=== PATIENT | male | born 1955 | race African-American/Black ===

== ENCOUNTER 2022-12-08 12:48 | Inpatient (IN) | payer MEDICAID ==
[~2022-12-08] VITALS: Ht 185.4 cm; Wt 68.5 kg
[~2022-12-08 12:48] MED LIST: MVI, ADULT NO.1 10 ML, FOLIC ACID 1 MG, THIAMINE HCL 100 MG in SODIUM CHLORIDE 0.9% 1,0... IV ONE
[2022-12-08] MEDS ORDERED: SODIUM CHLORIDE 0.9% 1,000 ML IV ONE (13:30)
[2022-12-08 16:56] LABS: HEMATOCRIT. 42.8 % (42.0-52.0); HEMOGLOBIN. 13.7 g/dL (14.0-18.0); MEAN CORPUSCULAR HEMOGLOBIN 32.5 pg (28.0-32.0); MEAN CORPUSCULAR VOLUME 101.4 fL (80.0-94.0); MEAN PLATELET VOLUME 8.6 fl (7.4-10.4); PLATELET 308 x1000/uL (130-400); RED BLOOD CELL COUNT 4.23 mill/uL (4.7-6.1)
[2022-12-08 17:50] LABS: CLARITY URINE CLOUDY (CLEAR); COLOR URINE DARK YELLOW (YELLOW); KETONES URINE 1+ (NEGATIVE); LEUKOCYTE ESTERASE URINE 1+ (NEGATIVE); NITRITE URINE POSITIVE (NEGATIVE); OCCULT BLOOD URINE TRACE (NEGATIVE); PH URINE 5.5 (4.5-8.0); PROTEIN URINE 1+ (NEGATIVE); SPECIFIC GRAVITY URINE 1.027 (1.005-1.030)
[2022-12-08] MEDS ORDERED: ASPIRIN 325MG EC TABLET PO ONE (18:00)
[2022-12-08] MEDS ORDERED: CEFTRIAXONE 1 G PREMIX 50 ML IV ONE (18:15)
[2022-12-08 18:18] LABS: PLATELET ESTIMATE NORMAL
[2022-12-08 19:57] LABS: CHLORIDE 133 mEq/L (98-107)
[2022-12-08] MEDS ORDERED: CALCIUM GLUCONATE 100MG/ML 10ML VIAL IV SCH (20:15)
[2022-12-08] MEDS ORDERED: POTASSIUM CHLORIDE INJ 40 MEQ in DEXT 5% WATER 250 ML IV SCH (20:30)
[2022-12-08 20:48] LABS: CHLORIDE 107 mEq/L (98-107)
[2022-12-08] MEDS ORDERED: ACETAMINOPHEN 325MG TABLET PO PRN (23:00)
[2022-12-08] MEDS ORDERED: MAGNESIUM/ALUMINUM HYDROXIDE/SIMETHICONE 30ML UDC PO PRN (23:00)
[2022-12-08] MEDS ORDERED: IPRATROPIUM/ALBUTEROL 0.5-3(2.5)MG/3ML NEB HHN PRN (23:00)
[2022-12-08] MEDS ORDERED: NITROGLYCERIN 0.4MG TABLET SL SL PRN (23:00)
[2022-12-08] MEDS ORDERED: DIPHENHYDRAMINE 50MG/ML VIAL IV PRN (23:00)
[2022-12-08] MEDS ORDERED: CLONIDINE 0.1MG TABLET PO PRN (23:00)
[2022-12-08] MEDS ORDERED: ONDANSETRON HCL 4MG/2ML INJ IV PRN (23:00)
[2022-12-09] MEDS ORDERED: PIPERACILLIN/TAZ 3.375G PREMIX 50 ML IV NR
[2022-12-09] MEDS ORDERED: MVI, ADULT NO.1 10 ML, FOLIC ACID 1 MG, THIAMINE HCL 100 MG in SODIUM CHLORIDE 0.9% 1,0... IV ONE ×4
[2022-12-09] MEDS ORDERED: VANCOMYCIN 1,750 MG in DEXT 5% WATER 500 ML IV NR ×2
[2022-12-09 01:17] LABS: VITAMIN B12 SERUM 862 pg/mL (211-911)
[2022-12-09 01:27] VITALS: BP 105/60
[2022-12-09 01:29] VITALS: BP 105/60
[2022-12-09] MEDS ORDERED: IPRATROPIUM BROMIDE (0.02%) 0.5MG/2.5ML NEB HHN PRN (02:00)
[2022-12-09] MEDS ORDERED: ALBUTEROL (0.083%) 2.5MG/3ML NEB HHN PRN (02:00)
[2022-12-09] MEDS ORDERED: PIPERACILLIN/TAZOBACTAM 3.375 G in DEXTROSE 5% WATER 50 ML IV SCH (07:00)
[2022-12-09 07:12] LABS: CREATINE KINASE MB FRACTION 3.3 ng/mL (0.5-3.6)
[2022-12-09 07:26] LABS: CHLORIDE 106 mEq/L (98-107)
[2022-12-09 07:45] LABS: HEMATOCRIT. 34.6 % (42.0-52.0); HEMOGLOBIN. 11.4 g/dL (14.0-18.0); MEAN CORPUSCULAR HEMOGLOBIN 32.7 pg (28.0-32.0); MEAN CORPUSCULAR VOLUME 99.7 fL (80.0-94.0); MEAN PLATELET VOLUME 8.6 fl (7.4-10.4); PLATELET 259 x1000/uL (130-400); RED BLOOD CELL COUNT 3.47 mill/uL (4.7-6.1); RED CELL DISTRIBUTION WIDTH 13.6 % (11.6-14.6)
[2022-12-09 08:00] VITALS: BP 99/66
[2022-12-09 08:12] LABS: HDL CHOLESTEROL 38 mg/dL (40-59); LDL CHOLESTEROL 56 mg/dL (5-100); T4 FREE 1.14 ng/dL (0.76-1.46)
[2022-12-09] MEDS: ENOXAPARIN 40MG/0.4ML SYR SUBCUT SCH (09:28)
[2022-12-09] MEDS: ASPIRIN 81MG EC TABLET PO SCH (09:28)
[2022-12-09] MEDS: PIPERACILLIN/TAZOBACTAM 3.375 G in DEXTROSE 5% WATER 50 ML IV SCH ×2 (10:56→21:30)
[2022-12-09 12:00] VITALS: BP 98/62
[2022-12-09] MEDS ORDERED: VANCOMYCIN 1G PREMIX 200 ML IV SCH (13:00)
[2022-12-09 13:35] LABS: *AMPHETAMINES SCREEN URINE NEGATIVE (NEGATIVE); *BARBITURATES SCREEN URINE NEGATIVE (NEGATIVE); *BENZODIAZEPINES SCREEN URINE NEGATIVE (NEGATIVE); *COCAINE SCREEN URINE NEGATIVE (NEGATIVE); CANNABINOID URINE SCREEN PRESUMTIVE POSITIVE (NEGATIVE); METHADONE URINE SCREEN NEGATIVE (NEGATIVE); OPIATES URINE SCREEN NEGATIVE (NEGATIVE); PHENCYCLIDINE URINE SCREEN PRESUMTIVE POSITIVE (NEGATIVE)
[2022-12-09 14:08] LABS: PLATELET ESTIMATE NORMAL
[2022-12-09 16:00] VITALS: BP 100/57
[2022-12-09 17:22] LABS: CREATINE KINASE 126 IU/L (39-308); CREATINE KINASE MB FRACTION 3.2 ng/mL (0.5-3.6); ETHANOL BLOOD < 10 mg/dL
[2022-12-09] MEDS: VANCOMYCIN 750MG PREMIX 150 ML IV SCH (17:34)
[2022-12-09 20:00] VITALS: BP 91/54
[2022-12-09] MEDS: ACETAMINOPHEN 325MG TABLET PO PRN (20:34)
[2022-12-09] MEDS ORDERED: FAMOTIDINE 20MG TABLET PO SCH (21:00)
[2022-12-10] VITALS: BP 100/62
[2022-12-10 04:00] VITALS: BP 98/62
[2022-12-10] MEDS: PIPERACILLIN/TAZOBACTAM 3.375 G in DEXTROSE 5% WATER 50 ML IV SCH ×2 (05:02→13:39)
[2022-12-10] MEDS: ACETAMINOPHEN 325MG TABLET PO PRN (05:49)
[2022-12-10] MEDS: VANCOMYCIN 750MG PREMIX 150 ML IV SCH ×2 (05:49→17:53)
[2022-12-10 06:18] LABS: HEMATOCRIT. 31.8 % (42.0-52.0); HEMOGLOBIN. 10.4 g/dL (14.0-18.0); MEAN CORPUSCULAR HEMOGLOBIN 32.3 pg (28.0-32.0); MEAN CORPUSCULAR VOLUME 98.8 fL (80.0-94.0); MEAN PLATELET VOLUME 8.6 fl (7.4-10.4); PLATELET 309 x1000/uL (130-400); RED BLOOD CELL COUNT 3.22 mill/uL (4.7-6.1); RED CELL DISTRIBUTION WIDTH 13.5 % (11.6-14.6)
[2022-12-10 08:00] VITALS: BP 92/58
[2022-12-10] MEDS ORDERED: FOLIC ACID 1MG TABLET PO SCH (09:00)
[2022-12-10] MEDS ORDERED: THIAMINE HCL 100MG TABLET PO SCH (09:00)
[2022-12-10] MEDS: ENOXAPARIN 40MG/0.4ML SYR SUBCUT SCH (09:26)
[2022-12-10] MEDS: ASPIRIN 81MG EC TABLET PO SCH (09:26)
[2022-12-10 09:34] LABS: CHLORIDE 107 mEq/L (98-107)
[2022-12-10] MEDS ORDERED: LACTULOSE 20G/30ML UDC PO NR ×2 (10:30→14:00)
[2022-12-10 12:00] VITALS: BP 96/53
[2022-12-10 14:54] LABS: PLATELET ESTIMATE NORMAL
[2022-12-10 16:00] VITALS: BP 117/55
[2022-12-10 18:38] VITALS: BP 117/55
== END 2022-12-10 21:00 | disposition home or self-care (01) | DRG 816 ==
LOC: ER 12:48 → MICUSO 22:07 → 7WST 12-09 00:40
PROVIDERS: ADMIT Hospitalist; ATTEND Hospitalist
DX: T40.5X1A Poisoning by cocaine, accidental (unintentional), initial encounter (principal); G92.8 Other toxic encephalopathy; E43 Unspecified severe protein-calorie malnutrition; E88.09 Other disorders of plasma-protein metabolism, not elsewhere classified; D53.9 Nutritional anemia, unspecified; R73.9 Hyperglycemia, unspecified; N39.0 Urinary tract infection, site not specified; F12.90 Cannabis use, unspecified, uncomplicated; F17.200 Nicotine dependence, unspecified, uncomplicated; F10.929 Alcohol use, unspecified with intoxication, unspecified; Z68.1 Body mass index [BMI] 19.9 or less, adult; Z59.00 Homelessness unspecified; Z91.410 Personal history of adult physical and sexual abuse; F14.129 Cocaine abuse with intoxication, unspecified
CPT/HCPCS: 36415; 71045; 80048; 80053; 80061; 80305; 80320; 81003; 82140; 82550; 82553; 82607; 82746; 83036; 83605; 84145; 84439; 84443; 84484; 85025; 93005; 93306; 99285; C1893; J0610; J0696; J1650; J2543; J3370; J3411; J3480; J3490; J7030; J7060; G0480